=== PATIENT | female | born 1995 | race Caucasian/White ===

== ENCOUNTER 2021-03-12 01:15 | Inpatient (IN) ==
[2021-03-12] MEDS ORDERED: OXYTOCIN 30 UNITS/500 ML BAG IV PRN ×3 (02:12→19:46)
[2021-03-12 02:33] LABS: Hemoglobin 12.6 g/dL (12.0-16.0); Mean Corpuscular Hemoglobin 27.6 pg (25-34); Mean Corpuscular Hgb Conc 33.2 g/dL (32-36); Mean Corpuscular Volume 83.3 fL (80-100); Mean Platelet Volume 11.3 fL (7.4-10.4); Platelet Count 230 K/uL (130-400); RDW Coefficient of Variation 13.5 % (11.5-14.5); RDW Standard Deviation 40.4 fL (36.4-46.3); Red Blood Count 4.56 M/uL (4.2-5.4); White Blood Count 10.49 K/uL (4.8-10.8)
[2021-03-12] MEDS ORDERED: BUTORPHANOL TARTRATE 1 MG/ML VIAL IV PRN (04:19)
[2021-03-12] MEDS ORDERED: BUTORPHANOL TARTRATE 1 MG/ML VIAL ONE (04:25)
[2021-03-12] MEDS ORDERED: SODIUM CHLORIDE 0.9% INJ 10 ML VIAL ONE (07:14)
[2021-03-12] MEDS ORDERED: fentaNYL citrate 100 MCG/2 ML VIAL ONE ×2 (07:14→15:10)
[2021-03-12] MEDS ORDERED: BUPIVACAINE 0.25% 30 ML VIAL ONE ×2 (07:14→15:10)
[2021-03-12] MEDS ORDERED: ePHEDrine sulfate 50 MG/ML AMP ONE (07:14)
[2021-03-12] MEDS ORDERED: fentaNYL 2MCG/ML ROPIVACAINE 1.25MG/ML 100 ML BAG EPI ONE (07:15)
[2021-03-12] MEDS: LACTATED RINGER'S 1,000 ML IV PRN ×4 (07:18→18:43)
--- NOTE | 2021-03-12 07:33 | Anesthesiology Consultation ---
Date of Service March 12, 2021 Assessment & Plan (1) Encounter for pre-operative examination: Chart Review Chart Review: Acceptable Risk for Surgery and Patient NOT seen in Pre Admission Testing Consults Requested none History Height/Weight Height: 5 ft 4 in Weight: 95.708 kg Allergies Allergy/AdvReac Type Severity Reaction Status Date / Time sulfamethoxazole Allergy Severe Rash Verified 03/12/21 01:23 [From Bactrim] trimethoprim [From Bactrim] Allergy Severe Rash Verified 03/12/21 01:23 Medications Home Medications Medication Instructions Recorded Confirmed Last Taken prenat.vits,clare,wtl-[id number] 1 tab PO DAILY 03/12/21 03/12/21 03/11/21 08:00 Active Medications Generic Name Dose Route Start Last Admin Trade Name Freq PRN Reason Stop Dose Admin Lactated Ringer's 1,000 mls @ 125 mls/hr 03/12/21 02:12 03/12/21 07:18 Lr IV 03/14/21 02:11 999 mls/hr .Q8H PRN Administration L&D Protocol Protocol Past Medical History Medical History Patient denies medical problems Past Surgical History Surgical History History of removal of cyst one on neck and one on left arm Lee teeth removed Social History Smoking Status: Never smoker Hx Alcohol Use: No Hx Substance Use: No substance use type: does not use Physical Exam Vital Signs Last Vital Signs Temp 36.6 C 03/12/21 07:05 Pulse 91 H 03/12/21 07:05 Resp 20 03/12/21 07:05 BP 120/80 03/12/21 07:05 Testing Laboratory Results 03/12/21 02:20 Blood Type O Positive 03/12/21 02:20 Antibody Screen NEGATIVE 03/12/21 02:20
[2021-03-12] MEDS ORDERED: NALOXONE HCL 0.4 MG/1 ML VIAL/CARP IV PRN (08:12)
[2021-03-12] MEDS ORDERED: NALBUPHINE HCL INJ 10 MG/ML AMP IV PRN (08:12)
[2021-03-12] MEDS ORDERED: ePHEDrine sulfate 50 MG/ML AMP IV PRN (08:12)
[2021-03-12] MEDS ORDERED: NALOXONE HCL 1 MG in SODIUM CHLORIDE 0.9% 1000ML 1,000 ML IV PRN (08:12)
[2021-03-12] MEDS ORDERED: ONDANSETRON INJ 2 MG/ML 2 ML VIAL IV PRN (08:12)
[2021-03-12] MEDS ORDERED: diphenhydrAMINE 50 MG/ML VIAL IV PRN (08:12)
[2021-03-12] MEDS ORDERED: fentaNYL 2MCG/ML ROPIVACAINE 1.25MG/ML 100 ML BAG EPI PRN (08:12)
--- NOTE | 2021-03-12 08:26 | Labor Progress Brief Note ---
Date of Service March 12, 2021 Assessment & Plan (1) PROM (premature rupture of membranes): Plan: Pt doing well FHR; CAT1 Ctx 4-5mins Epidural analgesia on board VE; unchanged 2cm Pitocin augmentation discussed with pt 'pt agrees Admission and Anticipated Discharge Date Admission Date: March 12, 2021 Results & Data ([facility]) Vital Signs (Past 12 Hours) Vital Signs Temp Pulse Resp BP Pulse Ox 03/12/21 08:23 86 113/62 03/12/21 08:22 104 H 97 03/12/21 08:21 107 H 113/63 03/12/21 08:19 109 H 107/60 03/12/21 08:17 116 H 113/56 L 98 03/12/21 08:16 121 H 102/54 L 03/12/21 08:13 108 H 117/63 03/12/21 08:12 113 H 98 03/12/21 08:11 113 H 115/63 03/12/21 08:09 106 H 117/56 L 03/12/21 08:07 106 H 116/58 L 97 03/12/21 08:05 105 H 123/66 03/12/21 08:04 110 H 115/61 03/12/21 08:02 109 H 98 03/12/21 07:57 106 H 97 03/12/21 07:52 85 98 03/12/21 07:47 103 H 99 03/12/21 07:42 104 H 99 03/12/21 07:37 108 H 98 03/12/21 07:05 36.6 C 91 H 20 120/80 03/12/21 04:45 36.6 C 100 H 18 122/75 03/12/21 03:30 36.8 C 03/12/21 01:31 104 H 121/76 03/12/21 01:26 36.8 C 18
--- NOTE | 2021-03-12 09:13 | Obstetrical Progress Note ---
Date of Service March 12, 2021 Assessment & Plan Admission and Anticipated Discharge Date Admission Date: March 12, 2021 Subjective Attempt to see the patient but she was sleeping after epidural. I got sign out from Also about her, at 38+ weeks with spontaneous rupture of membranes around midnight. GBS negative. I reviewed her records from office. heart rate category 1, toco contractions every 4 to 5 minutes, Pitocin was started. Continue to monitor Results & Data ([facility]) Vital Signs (Past 12 Hours) Vital Signs Temp Pulse Resp BP Pulse Ox 03/12/21 09:07 105 H 96 03/12/21 09:04 110 H 116/67 03/12/21 09:02 105 H 96 03/12/21 08:57 106 H 96 03/12/21 08:52 109 H 96 03/12/21 08:49 110 H 122/68 03/12/21 08:47 81 96 03/12/21 08:42 99 H 96 03/12/21 08:37 112 H 96 03/12/21 08:33 116 H 116/67 03/12/21 08:32 116 H 98 03/12/21 08:31 111 H 119/67 03/12/21 08:30 116 H 117/66 03/12/21 08:28 105 H 106/61 03/12/21 08:27 112 H 98 03/12/21 08:26 110/58 L 03/12/21 08:23 86 113/62 03/12/21 08:22 104 H 97 03/12/21 08:21 107 H 113/63 03/12/21 08:19 109 H 107/60 03/12/21 08:17 116 H 113/56 L 98 03/12/21 08:16 121 H 102/54 L 03/12/21 08:13 108 H 117/63 03/12/21 08:12 113 H 98 03/12/21 08:11 113 H 115/63 03/12/21 08:09 106 H 117/56 L 03/12/21 08:07 106 H 116/58 L 97 03/12/21 08:05 105 H 123/66 03/12/21 08:04 110 H 115/61 03/12/21 08:02 109 H 98 03/12/21 07:57 106 H 97 03/12/21 07:52 85 98 10/16/21 07:47 103 H 99 03/12/21 07:42 104 H 99 03/12/21 07:37 108 H 98 03/12/21 07:05 36.6 C 91 H 20 120/80 03/12/21 04:45 36.6 C 100 H 18 122/75 03/12/21 03:30 36.8 C 03/12/21 01:31 104 H 121/76 03/12/21 01:26 36.8 C 18
--- NOTE | 2021-03-12 12:03 | Obstetrical Progress Note ---
Date of Service March 12, 2021 Assessment & Plan Admission and Anticipated Discharge Date Admission Date: March 12, 2021 Subjective She is awake now, I reviewed her medical history with her, she denies any m edical problems, surgeries, smoking, alcohol or drug use she denies any history of STDs including herpes chlamydia gonorrhea. Her cervix was checked by her nurse and it was 8 cm dilated and head was at 0 station. heart rate category 1, toco with contractions every 2 to 3 minutes. Continue to monitor closely. All questions were answered. Results & Data ([facility]) Vital Signs (Past 12 Hours) Vital Signs Temp Pulse Resp BP Pulse Ox 03/12/21 11:57 102 H 99 03/12/21 11:52 120 H 99 03/12/21 11:49 116 H 132/81 03/12/21 11:47 112 H 100 03/12/21 11:42 113 H 99 03/12/21 11:37 118 H 98 03/12/21 11:34 112 H 133/77 03/12/21 11:32 113 H 99 03/12/21 11:27 112 H 99 03/12/21 11:22 110 H 98 03/12/21 11:20 109 H 131/80 03/12/21 11:17 107 H 100 03/12/21 11:12 103 H 99 03/12/21 11:07 111 H 99 03/12/21 11:05 36.9 C 111 H 20 128/77 03/12/21 11:02 110 H 99 03/12/21 10:57 113 H 99 03/12/21 10:52 99 H 98 03/12/21 10:49 105 H 122/75 03/12/21 10:47 101 H 98 03/12/21 10:42 102 H 97 03/12/21 10:37 106 H 97 03/12/21 10:34 102 H 120/76 03/12/21 10:32 99 H 99 03/12/21 10:27 111 H 99 03/12/21 10:22 108 H 99 03/12/21 10:20 104 H 121/75 03/12/21 10:17 115 H 97 03/12/21 10:12 101 H 99 03/12/21 10:07 110 H 98 03/12/21 10:04 110 H 18 123/67 03/12/21 10:02 113 H 97 03/12/21 09:57 118 H 98 03/12/21 09:52 119 H 92 03/12/21 09:49 108 H 110/77 03/12/21 09:47 102 H 98 03/12/21 09:42 113 H 98 03/12/21 09:37 104 H 99 03/12/21 09:35 117 H 106/68 03/12/21 09:32 107 H 98 03/12/21 09:27 105 H 96 03/12/21 09:22 98 H 95 03/12/21 09:19 111 H 115/67 03/12/21 09:17 100 H 95 03/12/21 09:12 106 H 96 03/12/21 09:07 105 H 96 03/12/21 09:04 110 H 116/67 03/12/21 09:02 105 H 96 03/12/21 09:01 36.9 C 18 03/12/21 08:57 106 H 96 03/12/21 08:52 109 H 96 03/12/21 08:49 110 H 122/68 03/12/21 08:47 81 96 03/12/21 08:42 99 H 96 03/12/21 08:37 112 H 96 03/12/21 08:33 116 H 116/67 03/12/21 08:32 116 H 98 03/12/21 08:31 111 H 119/67 03/12/21 08:30 116 H 117/66 03/12/21 08:28 105 H 106/61 03/12/21 08:27 112 H 98 03/12/21 08:26 110/58 L 03/12/21 08:23 86 113/62 03/12/21 08:22 104 H 97 03/12/21 08:21 107 H 113/63 03/12/21 08:19 109 H 107/60 03/12/21 08:17 116 H 113/56 L 98 03/12/21 08:16 121 H 102/54 L 03/12/21 08:13 108 H 117/63 03/12/21 08:12 113 H 98 03/12/21 08:11 113 H 115/63 03/12/21 08:09 106 H 117/56 L 03/12/21 08:07 106 H 116/58 L 97 03/12/21 08:05 105 H 123/66 03/12/21 08:04 110 H 115/61 03/12/21 08:02 109 H 98 03/12/21 07:57 106 H 97 03/12/21 07:52 85 98 03/12/21 07:47 103 H 99 03/12/21 07:42 104 H 99 03/12/21 07:37 108 H 98 03/12/21 07:05 36.6 C 91 H 20 120/80 03/12/21 04:45 36.6 C 100 H 18 122/75 03/12/21 03:30 36.8 C 03/12/21 01:31 104 H 121/76 03/12/21 01:26 36.8 C 18
--- NOTE | 2021-03-12 13:35 | Obstetrical Progress Note ---
Date of Service March 12, 2021 Assessment & Plan Admission and Anticipated Discharge Date Admission Date: March 12, 2021 Subjective Patient is reevaluated. She felt pain and pressure and was found to be fully dilated and desire to push. She used pain button and denies any pain now. Vaginal exam is 10 cm and head at +1 station with cone shape. heart rate category 1, Continue to monitor and pushing. Results & Data ([facility]) Vital Signs (Past 12 Hours) Vital Signs Temp Pulse Resp BP Pulse Ox 03/12/21 13:32 130 H 91 03/12/21 13:28 123 H 82 L 03/12/21 13:27 132 H 99 03/12/21 13:22 133 H 100 03/12/21 13:19 134 H 137/68 03/12/21 13:17 127 H 98 03/12/21 13:12 127 H 99 03/12/21 13:07 113 H 99 03/12/21 13:05 115 H 131/78 03/12/21 13:02 115 H 98 03/12/21 12:57 112 H 99 03/12/21 12:52 111 H 98 03/12/21 12:49 112 H 131/76 03/12/21 12:47 121 H 99 03/12/21 12:42 113 H 99 03/12/21 12:37 120 H 99 03/12/21 12:35 122 H 92 03/12/21 12:32 128 H 100 03/12/21 12:27 123 H 98 03/12/21 12:22 115 H 98 03/12/21 12:21 112 H 130/76 03/12/21 12:17 114 H 98 03/12/21 12:12 120 H 97 03/12/21 12:07 115 H 100 03/12/21 12:06 108 H 20 119/91 03/12/21 12:02 109 H 98 03/12/21 11:57 102 H 99 03/12/21 11:52 120 H 99 03/12/21 11:49 116 H 132/81 03/12/21 11:47 112 H 100 03/12/21 11:42 113 H 99 03/12/21 11:37 118 H 98 03/12/21 11:34 112 H 133/77 03/12/21 11:32 113 H 99 03/12/21 11:27 112 H 99 03/12/21 11:22 110 H 98 03/12/21 11:20 109 H 131/80 03/12/21 11:17 107 H 100 03/12/21 11:12 103 H 99 03/12/21 11:07 111 H 99 03/12/21 11:05 36.9 C 111 H 20 128/77 03/12/21 11:02 110 H 99 03/12/21 10:57 113 H 99 03/12/21 10:52 99 H 98 03/12/21 10:49 105 H 122/75 03/12/21 10:47 101 H 98 03/12/21 10:42 102 H 97 03/12/21 10:37 106 H 97 03/12/21 10:34 102 H 120/76 03/12/21 10:32 99 H 99 03/12/21 10:27 111 H 99 03/12/21 10:22 108 H 99 03/12/21 10:20 104 H 121/75 03/12/21 10:17 115 H 97 03/12/21 10:12 101 H 99 03/12/21 10:07 110 H 98 03/12/21 10:04 110 H 18 123/67 03/12/21 10:02 113 H 97 03/12/21 09:57 118 H 98 03/12/21 09:52 119 H 92 03/12/21 09:49 108 H 110/77 03/12/21 09:47 102 H 98 03/12/21 09:42 113 H 98 03/12/21 09:37 104 H 99 03/12/21 09:35 117 H 106/68 03/12/21 09:32 107 H 98 03/12/21 09:27 105 H 96 03/12/21 09:22 98 H 95 03/12/21 09:19 111 H 115/67 03/12/21 09:17 100 H 95 03/12/21 09:12 106 H 96 03/12/21 09:07 105 H 96 03/12/21 09:04 110 H 116/67 03/12/21 09:02 105 H 96 03/12/21 09:01 36.9 C 18 03/12/21 08:57 106 H 96 03/12/21 08:52 109 H 96 03/12/21 08:49 110 H 122/68 03/12/21 08:47 81 96 03/12/21 08:42 99 H 96 03/12/21 08:37 112 H 96 03/12/21 08:33 116 H 116/67 03/12/21 08:32 116 H 98 03/12/21 08:31 111 H 119/67 03/12/21 08:30 116 H 117/66 03/12/21 08:28 105 H 106/61 03/12/21 08:27 112 H 98 03/12/21 08:26 110/58 L 03/12/21 08:23 86 113/62 03/12/21 08:22 104 H 97 03/12/21 08:21 107 H 113/63 03/12/21 08:19 109 H 107/60 03/12/21 08:17 116 H 113/56 L 98 03/12/21 08:16 121 H 102/54 L 03/12/21 08:13 108 H 117/63 03/12/21 08:12 113 H 98 03/12/21 08:11 113 H 115/63 03/12/21 08:09 106 H 117/56 L 03/12/21 08:07 106 H 116/58 L 97 03/12/21 08:05 105 H 123/66 03/12/21 08:04 110 H 115/61 03/12/21 08:02 109 H 98 03/12/21 07:57 106 H 97 03/12/21 07:52 85 98 03/12/21 07:47 103 H 99 03/12/21 07:42 104 H 99 03/12/21 07:37 108 H 98 03/12/21 07:05 36.6 C 91 H 20 120/80 03/12/21 04:45 36.6 C 100 H 18 122/75 03/12/21 03:30 36.8 C
[2021-03-12] MEDS: ceFAZolin 2000MG 2,000 MG/15 ML SYR IV SCH ×2 (14:47→22:22)
--- NOTE | 2021-03-12 15:14 | Obstetrical Progress Note ---
Date of Service March 12, 2021 Assessment & Plan Admission and Anticipated Discharge Date Admission Date: March 12, 2021 Subjective Patient has been pushing for almost 2 hours. Started to have constant back/ rectal pain for the last half an hour or so. She is uncomfortable and crying. Vaginal exam, head at +2 station, coned, direct occiput posterior, confirmed with bedside ultrasound. Abdominal circumference is 36+ weeks, femur length 38 weeks. Unable to estimate weight by ultrasound but does not seem to be a large baby by the measurements above. Discussed option of pain relief with epidural bolus and then brief rest and then start pushing again versus primary . Discussed the risk of as a major surgery. She understands all and she wants to try epidural bolus and get some pain relief and then try to push again. heart rate category 1. It was tachycardic briefly and maternal temperature was 100 F, started on cefazolin 2 g IV for prolonged rupture of membranes and above findings. Continue to monitor closely. Results & Data ([facility]) Vital Signs (Past 12 Hours) Vital Signs Temp Pulse Resp BP Pulse Ox 03/12/21 15:07 128 H 97 03/12/21 15:04 139 H 127/94 03/12/21 15:02 130 H 97 03/12/21 14:57 140 H 97 03/12/21 14:52 154 H 99 03/12/21 14:50 142 H 92 03/12/21 14:47 146 H 97 03/12/21 14:42 126 H 97 03/12/21 14:37 37.2 C 137 H 24 95 03/12/21 14:36 122 H 110/58 L 03/12/21 14:32 134 H 98 03/12/21 14:27 135 H 99 03/12/21 14:22 122 H 98 03/12/21 14:21 128 H 88 L 03/12/21 14:17 129 H 98 03/12/21 14:15 138 H 86 L 03/12/21 14:12 126 H 99 03/12/21 14:08 126 H 93 03/12/21 14:07 128 H 97 03/12/21 14:04 130 H 114/71 03/12/21 14:03 37.8 C H 20 03/12/21 14:02 130 H 98 03/12/21 14:01 125 H 89 L 03/12/21 13:57 118 H 98 03/12/21 13:56 134 H 92 03/12/21 13:52 134 H 100 03/12/21 13:49 133 H 112/67 03/12/21 13:47 127 H 97 03/12/21 13:44 129 H 82 L 03/12/21 13:42 126 H 97 03/12/21 13:37 133 H 88 L 03/12/21 13:36 134 H 113/62 03/12/21 13:32 130 H 91 03/12/21 13:28 123 H 82 L 03/12/21 13:27 132 H 99 03/12/21 13:22 133 H 100 03/12/21 13:19 134 H 137/68 03/12/21 13:17 127 H 98 03/12/21 13:12 127 H 99 03/12/21 13:07 113 H 99 03/12/21 13:05 115 H 131/78 03/12/21 13:02 115 H 98 03/12/21 12:57 112 H 99 03/12/21 12:52 111 H 98 03/12/21 12:49 112 H 131/76 03/12/21 12:47 121 H 99 03/12/21 12:42 113 H 99 03/12/21 12:37 120 H 99 03/12/21 12:35 122 H 92 03/12/21 12:32 128 H 100 03/12/21 12:27 123 H 98 03/12/21 12:22 115 H 98 03/12/21 12:21 112 H 130/76 03/12/21 12:17 114 H 98 03/12/21 12:12 120 H 97 03/12/21 12:07 115 H 100 03/12/21 12:06 108 H 20 119/91 03/12/21 12:02 109 H 98 03/12/21 11:57 102 H 99 03/12/21 11:52 120 H 99 03/12/21 11:49 116 H 132/81 03/12/21 11:47 112 H 100 03/12/21 11:42 113 H 99 03/12/21 11:37 118 H 98 03/12/21 11:34 112 H 133/77 03/12/21 11:32 113 H 99 03/12/21 11:27 112 H 99 03/12/21 11:22 110 H 98 03/12/21 11:20 109 H 131/80 03/12/21 11:17 107 H 100 03/12/21 11:12 103 H 99 03/12/21 11:07 111 H 99 03/12/21 11:05 36.9 C 111 H 20 128/77 03/12/21 11:02 110 H 99 03/12/21 10:57 113 H 99 03/12/21 10:52 99 H 98 03/12/21 10:49 105 H 122/75 03/12/21 10:47 101 H 98 03/12/21 10:42 102 H 97 03/12/21 10:37 106 H 97 03/12/21 10:34 102 H 120/76 03/12/21 10:32 99 H 99 03/12/21 10:27 111 H 99 03/12/21 10:22 108 H 99 03/12/21 10:20 104 H 121/75 03/12/21 10:17 115 H 97 03/12/21 10:12 101 H 99 03/12/21 10:07 110 H 98 03/12/21 10:04 110 H 18 123/67 03/12/21 10:02 113 H 97 03/12/21 09:57 118 H 98 03/12/21 09:52 119 H 92 03/12/21 09:49 108 H 110/77 03/12/21 09:47 102 H 98 03/12/21 09:42 113 H 98 03/12/21 09:37 104 H 99 03/12/21 09:35 117 H 106/68 03/12/21 09:32 107 H 98 03/12/21 09:27 105 H 96 03/12/21 09:22 98 H 95 03/12/21 09:19 111 H 115/67 03/12/21 09:17 100 H 95 03/12/21 09:12 106 H 96 03/12/21 09:07 105 H 96 03/12/21 09:04 110 H 116/67 03/12/21 09:02 105 H 96 03/12/21 09:01 36.9 C 18 03/12/21 08:57 106 H 96 03/12/21 08:52 109 H 96 10/16/21 08:49 110 H 122/68 03/12/21 08:47 81 96 03/12/21 08:42 99 H 96 03/12/21 08:37 112 H 96 03/12/21 08:33 116 H 116/67 03/12/21 08:32 116 H 98 03/12/21 08:31 111 H 119/67 03/12/21 08:30 116 H 117/66 03/12/21 08:28 105 H 106/61 03/12/21 08:27 112 H 98 03/12/21 08:26 110/58 L 03/12/21 08:23 86 113/62 03/12/21 08:22 104 H 97 03/12/21 08:21 107 H 113/63 03/12/21 08:19 109 H 107/60 03/12/21 08:17 116 H 113/56 L 98 03/12/21 08:16 121 H 102/54 L 03/12/21 08:13 108 H 117/63 03/12/21 08:12 113 H 98 03/12/21 08:11 113 H 115/63 03/12/21 08:09 106 H 117/56 L 03/12/21 08:07 106 H 116/58 L 97 03/12/21 08:05 105 H 123/66 03/12/21 08:04 110 H 115/61 03/12/21 08:02 109 H 98 03/12/21 07:57 106 H 97 03/12/21 07:52 85 98 03/12/21 07:47 103 H 99 03/12/21 07:42 104 H 99 03/12/21 07:37 108 H 98 03/12/21 07:05 36.6 C 91 H 20 120/80 03/12/21 04:45 36.6 C 100 H 18 122/75 03/12/21 03:30 36.8 C
[2021-03-12] MEDS ORDERED: Nursing to Pharmacy Communication SCH (15:30)
--- NOTE | 2021-03-12 16:01 | Obstetrical Progress Note ---
Date of Service March 12, 2021 Assessment & Plan Admission and Anticipated Discharge Date Admission Date: March 12, 2021 Subjective Patient is reevaluated. She received bolus through epidural and now comfortable, sleeping FHR 150-160's with good variability but some variable decels during or after ctxs with spontaneous recovery VE: unchanged except anterior fontanelle at 10 o'clock ( LOP) Will change positions and continue to monitor closely Results & Data ([facility]) Vital Signs (Past 12 Hours) Vital Signs Temp Pulse Resp BP Pulse Ox 03/12/21 15:56 114 H 138/59 L 03/12/21 15:52 117 H 98 03/12/21 15:50 115 H 99/54 L 03/12/21 15:47 115 H 97 03/12/21 15:45 96 H 112/56 L 03/12/21 15:42 98 H 96 03/12/21 15:39 113 H 109/57 L 03/12/21 15:37 109 H 110/55 L 98 03/12/21 15:35 105 H 108/57 L 03/12/21 15:33 117 H 100/53 L 03/12/21 15:32 111 H 97 03/12/21 15:31 111 H 104/58 L 03/12/21 15:29 113 H 134/67 03/12/21 15:27 119 H 128/64 97 03/12/21 15:25 118 H 134/73 03/12/21 15:23 117 H 137/70 03/12/21 15:22 121 H 96 03/12/21 15:21 113 H 135/69 92 03/12/21 15:20 120 H 145/79 H 03/12/21 15:17 124 H 141/78 H 97 03/12/21 15:12 123 H 99 03/12/21 15:07 128 H 97 03/12/21 15:04 139 H 127/94 03/12/21 15:02 130 H 97 03/12/21 14:57 140 H 97 03/12/21 14:52 154 H 99 03/12/21 14:50 142 H 92 03/12/21 14:47 146 H 97 03/12/21 14:42 126 H 97 03/12/21 14:37 37.2 C 137 H 24 95 03/12/21 14:36 122 H 110/58 L 03/12/21 14:32 134 H 98 03/12/21 14:27 135 H 99 03/12/21 14:22 122 H 98 03/12/21 14:21 128 H 88 L 03/12/21 14:17 129 H 98 03/12/21 14:15 138 H 86 L 03/12/21 14:12 126 H 99 03/12/21 14:08 126 H 93 03/12/21 14:07 128 H 97 03/12/21 14:04 130 H 114/71 03/12/21 14:03 37.8 C H 20 03/12/21 14:02 130 H 98 03/12/21 14:01 125 H 89 L 03/12/21 13:57 118 H 98 03/12/21 13:56 134 H 92 03/12/21 13:52 134 H 100 03/12/21 13:49 133 H 112/67 03/12/21 13:47 127 H 97 03/12/21 13:44 129 H 82 L 03/12/21 13:42 126 H 97 03/12/21 13:37 133 H 88 L 03/12/21 13:36 134 H 113/62 03/12/21 13:32 130 H 91 03/12/21 13:28 123 H 82 L 03/12/21 13:27 132 H 99 03/12/21 13:22 133 H 100 03/12/21 13:19 134 H 137/68 03/12/21 13:17 127 H 98 03/12/21 13:12 127 H 99 03/12/21 13:07 113 H 99 03/12/21 13:05 115 H 131/78 03/12/21 13:02 115 H 98 03/12/21 12:57 112 H 99 03/12/21 12:52 111 H 98 03/12/21 12:49 112 H 131/76 03/12/21 12:47 121 H 99 03/12/21 12:42 113 H 99 03/12/21 12:37 120 H 99 03/12/21 12:35 122 H 92 03/12/21 12:32 128 H 100 03/12/21 12:27 123 H 98 03/12/21 12:22 115 H 98 03/12/21 12:21 112 H 130/76 03/12/21 12:17 114 H 98 03/12/21 12:12 120 H 97 03/12/21 12:07 115 H 100 03/12/21 12:06 108 H 20 119/91 03/12/21 12:02 109 H 98 03/12/21 11:57 102 H 99 03/12/21 11:52 120 H 99 03/12/21 11:49 116 H 132/81 03/12/21 11:47 112 H 100 03/12/21 11:42 113 H 99 03/12/21 11:37 118 H 98 03/12/21 11:34 112 H 133/77 03/12/21 11:32 113 H 99 03/12/21 11:27 112 H 99 03/12/21 11:22 110 H 98 03/12/21 11:20 109 H 131/80 03/12/21 11:17 107 H 100 03/12/21 11:12 103 H 99 03/12/21 11:07 111 H 99 03/12/21 11:05 36.9 C 111 H 20 128/77 03/12/21 11:02 110 H 99 03/12/21 10:57 113 H 99 03/12/21 10:52 99 H 98 03/12/21 10:49 105 H 122/75 03/12/21 10:47 101 H 98 03/12/21 10:42 102 H 97 03/12/21 10:37 106 H 97 03/12/21 10:34 102 H 120/76 03/12/21 10:32 99 H 99 03/12/21 10:27 111 H 99 03/12/21 10:22 108 H 99 03/12/21 10:20 104 H 121/75 03/12/21 10:17 115 H 97 03/12/21 10:12 101 H 99 03/12/21 10:07 110 H 98 03/12/21 10:04 110 H 18 123/67 03/12/21 10:02 113 H 97 03/12/21 09:57 118 H 98 03/12/21 09:52 119 H 92 03/12/21 09:49 108 H 110/77 03/12/21 09:47 102 H 98 03/12/21 09:42 113 H 98 03/12/21 09:37 104 H 99 03/12/21 09:35 117 H 106/68 03/12/21 09:32 107 H 98 03/12/21 09:27 105 H 96 03/12/21 09:22 98 H 95 03/12/21 09:19 111 H 115/67 03/12/21 09:17 100 H 95 03/12/21 09:12 106 H 96 03/12/21 09:07 105 H 96 03/12/21 09:04 110 H 116/67 03/12/21 09:02 105 H 96 03/12/21 09:01 36.9 C 18 03/12/21 08:57 106 H 96 03/12/21 08:52 109 H 96 03/12/21 08:49 110 H 122/68 03/12/21 08:47 81 96 03/12/21 08:42 99 H 96 03/12/21 08:37 112 H 96 03/12/21 08:33 116 H 116/67 03/12/21 08:32 116 H 98 03/12/21 08:31 111 H 119/67 03/12/21 08:30 116 H 117/66 03/12/21 08:28 105 H 106/61 03/12/21 08:27 112 H 98 03/12/21 08:26 110/58 L 03/12/21 08:23 86 113/62 03/12/21 08:22 104 H 97 03/12/21 08:21 107 H 113/63 03/12/21 08:19 109 H 107/60 03/12/21 08:17 116 H 113/56 L 98 03/12/21 08:16 121 H 102/54 L 03/12/21 08:13 108 H 117/63 03/12/21 08:12 113 H 98 03/12/21 08:11 113 H 115/63 03/12/21 08:09 106 H 117/56 L 03/12/21 08:07 106 H 116/58 L 97 03/12/21 08:05 105 H 123/66 03/12/21 08:04 110 H 115/61 03/12/21 08:02 109 H 98 03/12/21 07:57 106 H 97 03/12/21 07:52 85 98 03/12/21 07:47 103 H 99 03/12/21 07:42 104 H 99 03/12/21 07:37 108 H 98 03/12/21 07:05 36.6 C 91 H 20 120/80 03/12/21 04:45 36.6 C 100 H 18 122/75
--- NOTE | 2021-03-12 17:35 | Obstetrical Progress Note ---
Date of Service March 12, 2021 Assessment & Plan Admission and Anticipated Discharge Date Admission Date: March 12, 2021 Subjective Patient had rested for over an hour and now awake and ready to push No pain nor pressure FHR had been categ I, no decels since last note VE; large caput, anterior fontanelle at 7 o'clock? partially visible upon opening labia while pushing Continue to monitor closely and pushing. Results & Data ([facility]) Vital Signs (Past 12 Hours) Vital Signs Temp Pulse Resp BP Pulse Ox 03/12/21 17:28 112 H 80 L 03/12/21 17:27 116 H 100 03/12/21 17:22 37.5 C 133 H 20 97 03/12/21 17:17 133 H 98 03/12/21 17:16 113 H 85 L 03/12/21 17:15 127 H 105/66 03/12/21 17:12 106 H 99 03/12/21 17:11 127 H 133/93 03/12/21 17:10 101 H 91 03/12/21 17:07 97 H 97 03/12/21 17:06 101 H 123/77 03/12/21 17:02 93 H 97 03/12/21 17:00 108 H 127/67 03/12/21 16:57 95 H 96 03/12/21 16:55 102 H 116/63 03/12/21 16:52 108 H 97 03/12/21 16:51 103 H 121/70 03/12/21 16:47 99 H 97 03/12/21 16:45 108 H 130/70 03/12/21 16:42 108 H 97 03/12/21 16:40 107 H 122/66 03/12/21 16:37 102 H 97 03/12/21 16:35 110 H 118/67 03/12/21 16:33 37.1 C 18 03/12/21 16:32 114 H 96 03/12/21 16:31 106 H 121/66 03/12/21 16:27 94 H 97 03/12/21 16:25 111 H 117/63 03/12/21 16:22 97 H 97 03/12/21 16:21 110 H 120/70 03/12/21 16:17 101 H 97 03/12/21 16:15 113 H 120/61 03/12/21 16:12 95 H 97 03/12/21 16:10 111 H 116/62 03/12/21 16:07 100 H 97 03/12/21 16:05 105 H 120/61 03/12/21 16:02 110 H 97 03/12/21 16:00 117 H 120/60 03/12/21 15:57 129 H 97 03/12/21 15:56 114 H 138/59 L 03/12/21 15:52 117 H 98 03/12/21 15:50 115 H 99/54 L 03/12/21 15:47 115 H 97 03/12/21 15:45 96 H 112/56 L 03/12/21 15:42 98 H 96 03/12/21 15:39 113 H 109/57 L 03/12/21 15:37 109 H 110/55 L 98 03/12/21 15:35 105 H 108/57 L 03/12/21 15:33 117 H 100/53 L 03/12/21 15:32 111 H 97 03/12/21 15:31 111 H 104/58 L 03/12/21 15:29 113 H 134/67 03/12/21 15:27 119 H 128/64 97 03/12/21 15:25 118 H 134/73 03/12/21 15:23 117 H 137/70 03/12/21 15:22 121 H 96 03/12/21 15:21 113 H 135/69 92 03/12/21 15:20 120 H 145/79 H 03/12/21 15:17 124 H 141/78 H 97 03/12/21 15:12 123 H 99 03/12/21 15:07 128 H 97 03/12/21 15:04 139 H 127/94 03/12/21 15:02 130 H 97 03/12/21 14:57 140 H 97 03/12/21 14:52 154 H 99 03/12/21 14:50 142 H 92 03/12/21 14:47 146 H 97 03/12/21 14:42 126 H 97 03/12/21 14:37 37.2 C 137 H 24 95 03/12/21 14:36 122 H 110/58 L 03/12/21 14:32 134 H 98 03/12/21 14:27 135 H 99 03/12/21 14:22 122 H 98 03/12/21 14:21 128 H 88 L 03/12/21 14:17 129 H 98 03/12/21 14:15 138 H 86 L 03/12/21 14:12 126 H 99 03/12/21 14:08 126 H 93 03/12/21 14:07 128 H 97 03/12/21 14:04 130 H 114/71 03/12/21 14:03 37.8 C H 20 03/12/21 14:02 130 H 98 03/12/21 14:01 125 H 89 L 03/12/21 13:57 118 H 98 03/12/21 13:56 134 H 92 03/12/21 13:52 134 H 100 03/12/21 13:49 133 H 112/67 03/12/21 13:47 127 H 97 03/12/21 13:44 129 H 82 L 03/12/21 13:42 126 H 97 03/12/21 13:37 133 H 88 L 03/12/21 13:36 134 H 113/62 03/12/21 13:32 130 H 91 03/12/21 13:28 123 H 82 L 03/12/21 13:27 132 H 99 03/12/21 13:22 133 H 100 03/12/21 13:19 134 H 137/68 03/12/21 13:17 127 H 98 03/12/21 13:12 127 H 99 03/12/21 13:07 113 H 99 03/12/21 13:05 115 H 131/78 03/12/21 13:02 115 H 98 03/12/21 12:57 112 H 99 03/12/21 12:52 111 H 98 03/12/21 12:49 112 H 131/76 03/12/21 12:47 121 H 99 03/12/21 12:42 113 H 99 03/12/21 12:37 120 H 99 03/12/21 12:35 122 H 92 03/12/21 12:32 128 H 100 03/12/21 12:27 123 H 98 03/12/21 12:22 115 H 98 03/12/21 12:21 112 H 130/76 03/12/21 12:17 114 H 98 03/12/21 12:12 120 H 97 03/12/21 12:07 115 H 100 03/12/21 12:06 108 H 20 119/91 03/12/21 12:02 109 H 98 03/12/21 11:57 102 H 99 03/12/21 11:52 120 H 99 03/12/21 11:49 116 H 132/81 03/12/21 11:47 112 H 100 03/12/21 11:42 113 H 99 03/12/21 11:37 118 H 98 03/12/21 11:34 112 H 133/77 03/12/21 11:32 113 H 99 03/12/21 11:27 112 H 99 03/12/21 11:22 110 H 98 03/12/21 11:20 109 H 131/80 03/12/21 11:17 107 H 100 03/12/21 11:12 103 H 99 03/12/21 11:07 111 H 99 03/12/21 11:05 36.9 C 111 H 20 128/77 03/12/21 11:02 110 H 99 03/12/21 10:57 113 H 99 03/12/21 10:52 99 H 98 03/12/21 10:49 105 H 122/75 03/12/21 10:47 101 H 98 03/12/21 10:42 102 H 97 03/12/21 10:37 106 H 97 03/12/21 10:34 102 H 120/76 03/12/21 10:32 99 H 99 03/12/21 10:27 111 H 99 03/12/21 10:22 108 H 99 03/12/21 10:20 104 H 121/75 03/12/21 10:17 115 H 97 03/12/21 10:12 101 H 99 03/12/21 10:07 110 H 98 03/12/21 10:04 110 H 18 123/67 03/12/21 10:02 113 H 97 03/12/21 09:57 118 H 98 03/12/21 09:52 119 H 92 03/12/21 09:49 108 H 110/77 03/12/21 09:47 102 H 98 03/12/21 09:42 113 H 98 03/12/21 09:37 104 H 99 03/12/21 09:35 117 H 106/68 03/12/21 09:32 107 H 98 03/12/21 09:27 105 H 96 10/16/21 09:22 98 H 95 03/12/21 09:19 111 H 115/67 03/12/21 09:17 100 H 95 03/12/21 09:12 106 H 96 03/12/21 09:07 105 H 96 03/12/21 09:04 110 H 116/67 03/12/21 09:02 105 H 96 03/12/21 09:01 36.9 C 18 03/12/21 08:57 106 H 96 03/12/21 08:52 109 H 96 03/12/21 08:49 110 H 122/68 03/12/21 08:47 81 96 03/12/21 08:42 99 H 96 03/12/21 08:37 112 H 96 03/12/21 08:33 116 H 116/67 03/12/21 08:32 116 H 98 03/12/21 08:31 111 H 119/67 03/12/21 08:30 116 H 117/66 03/12/21 08:28 105 H 106/61 03/12/21 08:27 112 H 98 03/12/21 08:26 110/58 L 03/12/21 08:23 86 113/62 03/12/21 08:22 104 H 97 03/12/21 08:21 107 H 113/63 03/12/21 08:19 109 H 107/60 03/12/21 08:17 116 H 113/56 L 98 03/12/21 08:16 121 H 102/54 L 03/12/21 08:13 108 H 117/63 03/12/21 08:12 113 H 98 03/12/21 08:11 113 H 115/63 03/12/21 08:09 106 H 117/56 L 03/12/21 08:07 106 H 116/58 L 97 03/12/21 08:05 105 H 123/66 03/12/21 08:04 110 H 115/61 03/12/21 08:02 109 H 98 03/12/21 07:57 106 H 97 03/12/21 07:52 85 98 03/12/21 07:47 103 H 99 03/12/21 07:42 104 H 99 03/12/21 07:37 108 H 98 03/12/21 07:05 36.6 C 91 H 20 120/80
[2021-03-12] MEDS ORDERED: MINERAL OIL 30 ML UDC ONE ×2 (18:00→18:29)
[2021-03-12] MEDS ORDERED: LIDOCAINE 1% LOCAL 20 ML VIAL ONE (19:24)
[2021-03-12] MEDS ORDERED: DIPHTHERIA/TETANUS/PERTUSSIS 0.5 ML SYR/VIAL IM ONE (19:46)
[2021-03-12] MEDS ORDERED: ACETAMINOPHEN 325 MG TAB PO PRN (19:46)
[2021-03-12] MEDS ORDERED: SUPERCREAM 0.870% 15 GM JAR EXT PRN (19:46)
[2021-03-12] MEDS ORDERED: BENZOCAINE 20% AER SPR 82.5 GM CAN EXT PRN (19:46)
[2021-03-12] MEDS ORDERED: MEASLES, MUMPS & RUBELLA VIRUS VIAL SQ ONE (19:46)
[2021-03-12] MEDS ORDERED: oxyCODONE/ACETAMINOPHEN 5mg/325mg TAB PO PRN (19:46)
[2021-03-12] MEDS ORDERED: HYDROCORTISONE ACETATE 25 MG SUPP PR PRN (19:46)
[2021-03-12] MEDS ORDERED: bisacodyL 10 MG SUPP PR PRN (19:46)
--- NOTE | 2021-03-12 19:52 | Delivery Summary ---
Vaginal Delivery Summary Date of Service March 12, 2021 Vaginal Delivery Summary Patient was found to be fully dilated and desire to push. she pushed of and on for about 4 hours and delivered the head 3 and intact perineum. Anterior/left shoulder was found to be stuck behind the pubic bone. The nursing team was notified to have shoulder dystocia. The bed was lowered down, and with the hyper extension of legs and suprapubic pressure, unable to deliver the anterior shoulder. I was able to deliver posterior/right arm shoulder without difficulty. And then all baby was delivered and placed on mother's chest. Mouth and nose were suctioned, cord was clamped x2 and cut. The baby was handed to the waiting pediatric team with Dr. Lea. The vagina and perineum were checked for lacerations. There was a very small first-degree laceration on the anterior vagina wall under the urethra. It was repaired with 3-0 Vicryl on SH needle with [id number] stitch x1 and it was hemostatic. The rest of the vagina and perineum were intact. The placenta was found to be in the vagina, delivered spontaneously as intact and complete. Uterus was explored found to be empty lower segment was cleared of all clots and debris. IV oxytocin was started. EBL was 200 mL. The mom and baby tolerated procedure well, there was a viable male , Apgars 7/9, weight is pending. No complications happened other than moderate shoulder dystocia.
[2021-03-12] MEDS: IBUPROFEN 600 MG TAB PO PRN (20:01)
--- NOTE | 2021-03-12 20:30 | Anesthesiology Progress Note ---
Date of Service March 12, 2021 Anesthesia Post Procedure Vital Signs Vital Signs: Temp Pulse Resp BP Pulse Ox 03/12/21 20:29 96 H 119/63 03/12/21 20:05 96 H 18 116/52 L 03/12/21 19:54 115 H 130/59 L 03/12/21 19:48 18 03/12/21 19:37 129 H 98 03/12/21 19:34 122 H 18 131/60 03/12/21 19:32 122 H 97 03/12/21 19:31 120 H 136/62 03/12/21 19:27 118 H 97 03/12/21 19:22 167 H 98 03/12/21 19:17 125 H 96 03/12/21 19:16 121 H 140/71 03/12/21 19:12 131 H 98 03/12/21 19:10 129 H 94 03/12/21 19:07 118 H 97 03/12/21 19:03 116 H 126/65 03/12/21 19:02 113 H 97 03/12/21 19:00 37.6 C H 20 03/12/21 18:58 111 H 84 L 03/12/21 18:57 114 H 97 03/12/21 18:52 115 H 86 L 03/12/21 18:47 133 H 129/58 L 96 03/12/21 18:46 107 H 87 L 03/12/21 18:42 121 H 99 03/12/21 18:39 119 H 82 L 03/12/21 18:37 116 H 97 03/12/21 18:32 110 H 97 03/12/21 18:27 108 H 96 03/12/21 18:26 112 H 92 03/12/21 18:22 105 H 80 L 03/12/21 18:18 110 H 91 03/12/21 18:17 111 H 98 03/12/21 18:13 97 H 90 03/12/21 18:12 102 H 99 03/12/21 18:07 111 H 98 03/12/21 18:06 109 H 89 L 03/12/21 18:02 122 H 100 03/12/21 18:01 137 H 122/57 L 03/12/21 18:00 97 H 88 L 03/12/21 17:57 124 H 97 03/12/21 17:54 90 88 L 03/12/21 17:52 130 H 100 03/12/21 17:48 90 89 L 03/12/21 17:47 98 H 100 03/12/21 17:46 106 H 122/61 03/12/21 17:43 119 H 90 03/12/21 17:42 105 H 100 03/12/21 17:37 115 H 100 03/12/21 17:32 117 H 100 03/12/21 17:31 120 H 111/62 03/12/21 17:28 112 H 80 L 03/12/21 17:27 116 H 100 03/12/21 17:22 37.5 C 133 H 20 97 03/12/21 17:17 133 H 98 03/12/21 17:16 113 H 85 L 03/12/21 17:15 127 H 105/66 03/12/21 17:12 106 H 99 03/12/21 17:11 127 H 133/93 03/12/21 17:10 101 H 91 03/12/21 17:07 97 H 97 03/12/21 17:06 101 H 123/77 03/12/21 17:02 93 H 97 03/12/21 17:00 108 H 20 127/67 03/12/21 16:57 95 H 96 03/12/21 16:55 102 H 116/63 03/12/21 16:52 108 H 97 03/12/21 16:51 103 H 121/70 03/12/21 16:47 99 H 97 03/12/21 16:45 108 H 130/70 03/12/21 16:42 108 H 97 03/12/21 16:40 107 H 122/66 03/12/21 16:37 102 H 97 03/12/21 16:35 110 H 118/67 03/12/21 16:33 37.1 C 18 03/12/21 16:32 114 H 96 03/12/21 16:31 106 H 121/66 03/12/21 16:27 94 H 97 03/12/21 16:25 111 H 117/63 03/12/21 16:22 97 H 97 03/12/21 16:21 110 H 120/70 03/12/21 16:17 101 H 97 03/12/21 16:15 113 H 120/61 03/12/21 16:12 95 H 97 03/12/21 16:10 111 H 116/62 03/12/21 16:07 100 H 97 03/12/21 16:05 105 H 120/61 03/12/21 16:02 110 H 97 03/12/21 16:00 117 H 120/60 03/12/21 15:57 129 H 97 03/12/21 15:56 114 H 138/59 L 03/12/21 15:52 117 H 98 03/12/21 15:50 115 H 99/54 L 03/12/21 15:47 115 H 97 03/12/21 15:45 96 H 112/56 L 03/12/21 15:42 98 H 96 03/12/21 15:39 113 H 109/57 L 03/12/21 15:37 109 H 110/55 L 98 03/12/21 15:35 105 H 108/57 L 03/12/21 15:33 117 H 100/53 L 03/12/21 15:32 111 H 97 03/12/21 15:31 111 H 104/58 L 03/12/21 15:29 113 H 134/67 03/12/21 15:27 119 H 128/64 97 03/12/21 15:25 118 H 134/73 03/12/21 15:23 117 H 137/70 03/12/21 15:22 121 H 96 03/12/21 15:21 113 H 135/69 92 03/12/21 15:20 120 H 145/79 H 03/12/21 15:17 124 H 141/78 H 97 03/12/21 15:12 123 H 99 03/12/21 15:07 128 H 97 03/12/21 15:04 139 H 127/94 03/12/21 15:02 130 H 97 03/12/21 14:57 140 H 97 03/12/21 14:52 154 H 99 03/12/21 14:50 142 H 92 03/12/21 14:47 146 H 97 03/12/21 14:42 126 H 97 03/12/21 14:37 37.2 C 137 H 24 95 03/12/21 14:36 122 H 110/58 L 03/12/21 14:32 134 H 98 03/12/21 14:27 135 H 99 03/12/21 14:22 122 H 98 03/12/21 14:21 128 H 88 L 03/12/21 14:17 129 H 98 03/12/21 14:15 138 H 86 L 03/12/21 14:12 126 H 99 03/12/21 14:08 126 H 93 03/12/21 14:07 128 H 97 03/12/21 14:04 130 H 114/71 03/12/21 14:03 37.8 C H 20 03/12/21 14:02 130 H 98 03/12/21 14:01 125 H 89 L 03/12/21 13:57 118 H 98 03/12/21 13:56 134 H 92 03/12/21 13:52 134 H 100 03/12/21 13:49 133 H 112/67 03/12/21 13:47 127 H 97 03/12/21 13:44 129 H 82 L 03/12/21 13:42 126 H 97 03/12/21 13:37 133 H 88 L 03/12/21 13:36 134 H 113/62 03/12/21 13:32 130 H 91 03/12/21 13:28 123 H 82 L 03/12/21 13:27 132 H 99 03/12/21 13:22 133 H 100 03/12/21 13:19 134 H 137/68 03/12/21 13:17 127 H 98 03/12/21 13:12 127 H 99 03/12/21 13:07 113 H 99 03/12/21 13:05 115 H 131/78 03/12/21 13:02 115 H 98 03/12/21 12:57 112 H 99 03/12/21 12:52 111 H 98 03/12/21 12:49 112 H 131/76 03/12/21 12:47 121 H 99 03/12/21 12:42 113 H 99 03/12/21 12:37 120 H 99 03/12/21 12:35 122 H 92 03/12/21 12:32 128 H 100 03/12/21 12:27 123 H 98 03/12/21 12:22 115 H 98 03/12/21 12:21 112 H 130/76 03/12/21 12:17 114 H 98 03/12/21 12:12 120 H 97 03/12/21 12:07 115 H 100 03/12/21 12:06 108 H 20 119/91 03/12/21 12:02 109 H 98 03/12/21 11:57 102 H 99 03/12/21 11:52 120 H 99 03/12/21 11:49 116 H 132/81 03/12/21 11:47 112 H 100 03/12/21 11:42 113 H 99 03/12/21 11:37 118 H 98 03/12/21 11:34 112 H 133/77 03/12/21 11:32 113 H 99 03/12/21 11:27 112 H 99 03/12/21 11:22 110 H 98 03/12/21 11:20 109 H 131/80 03/12/21 11:17 107 H 100 03/12/21 11:12 103 H 99 03/12/21 11:07 111 H 99 03/12/21 11:05 36.9 C 111 H 20 128/77 03/12/21 11:02 110 H 99 03/12/21 10:57 113 H 99 03/12/21 10:52 99 H 98 03/12/21 10:49 105 H 122/75 03/12/21 10:47 101 H 98 03/12/21 10:42 102 H 97 03/12/21 10:37 106 H 97 03/12/21 10:34 102 H 120/76 03/12/21 10:32 99 H 99 03/12/21 10:27 111 H 99 03/12/21 10:22 108 H 99 03/12/21 10:20 104 H 121/75 03/12/21 10:17 115 H 97 03/12/21 10:12 101 H 99 03/12/21 10:07 110 H 98 03/12/21 10:04 110 H 18 123/67 03/12/21 10:02 113 H 97 03/12/21 09:57 118 H 98 03/12/21 09:52 119 H 92 03/12/21 09:49 108 H 110/77 03/12/21 09:47 102 H 98 03/12/21 09:42 113 H 98 03/12/21 09:37 104 H 99 03/12/21 09:35 117 H 106/68 03/12/21 09:32 107 H 98 03/12/21 09:27 105 H 96 03/12/21 09:22 98 H 95 03/12/21 09:19 111 H 115/67 03/12/21 09:17 100 H 95 03/12/21 09:12 106 H 96 03/12/21 09:07 105 H 96 03/12/21 09:04 110 H 116/67 03/12/21 09:02 105 H 96 03/12/21 09:01 36.9 C 18 03/12/21 08:57 106 H 96 03/12/21 08:52 109 H 96 03/12/21 08:49 110 H 122/68 03/12/21 08:47 81 96 03/12/21 08:42 99 H 96 03/12/21 08:37 112 H 96 03/12/21 08:33 116 H 116/67 03/12/21 08:32 116 H 98 03/12/21 08:31 111 H 119/67 03/12/21 08:30 116 H 117/66 03/12/21 08:28 105 H 106/61 03/12/21 08:27 112 H 98 03/12/21 08:26 110/58 L 03/12/21 08:23 86 113/62 03/12/21 08:22 104 H 97 03/12/21 08:21 107 H 113/63 03/12/21 08:19 109 H 107/60 03/12/21 08:17 116 H 113/56 L 98 03/12/21 08:16 121 H 102/54 L 03/12/21 08:13 108 H 117/63 03/12/21 08:12 113 H 98 03/12/21 08:11 113 H 115/63 03/12/21 08:09 106 H 117/56 L 03/12/21 08:07 106 H 116/58 L 97 03/12/21 08:05 105 H 123/66 03/12/21 08:04 110 H 115/61 03/12/21 08:02 109 H 98 03/12/21 07:57 106 H 97 03/12/21 07:52 85 98 03/12/21 07:47 103 H 99 03/12/21 07:42 104 H 99 03/12/21 07:37 108 H 98 03/12/21 07:05 36.6 C 91 H 20 120/80 03/12/21 04:45 36.6 C 100 H 18 122/75 03/12/21 03:30 36.8 C 03/12/21 01:31 104 H 121/76 03/12/21 01:26 36.8 C 18 Pain Intensity Bilateral Episiotomy/Laceration: Pain Intensity: 6 Transfer of Care Handoff Completed per policy Notes Mental Status: alert / awake / arousable and participated in evaluation Patient Amnestic to Procedure: Yes Nausea / Vomiting: adequately controlled Pain: adequately controlled Airway Patency, RR, SpO2: stable & adequate BP & HR: stable & adequate Hydration State: stable & adequate Anesthetic Complications: no major complications apparent and Pt Satisfied with anesthetic care
[2021-03-12] MEDS: OXYTOCIN 20 UNITS in LACTATED RINGER'S 1,000 ML IV SCH (20:58)
[2021-03-12] MEDS: DOCUSATE SODIUM 100 MG CAP PO SCH (21:01)
[2021-03-13] MEDS: OXYTOCIN 20 UNITS in LACTATED RINGER'S 1,000 ML IV SCH (06:04)
[2021-03-13] MEDS: ceFAZolin 2000MG 2,000 MG/15 ML SYR IV SCH ×2 (06:22→14:43)
[2021-03-13 07:27] LABS: Hemoglobin 11.5 g/dL (12.0-16.0); Mean Corpuscular Hemoglobin 27.6 pg (25-34); Mean Corpuscular Hgb Conc 32.9 g/dL (32-36); Mean Corpuscular Volume 83.9 fL (80-100); Platelet Count 177 K/uL (130-400); RDW Coefficient of Variation 13.7 % (11.5-14.5); RDW Standard Deviation 40.9 fL (36.4-46.3); Red Blood Count 4.17 M/uL (4.2-5.4); White Blood Count 21.28 K/uL (4.8-10.8)
[2021-03-13] MEDS: PRENATAL VITAMIN 1 TAB PO SCH (08:30)
[2021-03-13] MEDS: DOCUSATE SODIUM 100 MG CAP PO SCH ×2 (08:30→20:16)
[2021-03-13] MEDS: FERROUS SULFATE 325 MG TAB PO SCH (08:31)
--- NOTE | 2021-03-13 10:19 | Obstetrical Progress Note ---
Date of Service March 13, 2021 Assessment & Plan Admission and Anticipated Discharge Date Admission Date: March 12, 2021 Subjective Patient is seen and examined. She feels well, no complaints. Ambulating without dizziness Voiding without difficulty Tolerating regular diet with out N&V Bleeding is minimal No fever/ chills/ CP/ SOB/ N&V/ Leg pain Breast and bottle feeding without problems Vital Signs Temp Pulse Resp BP Pulse Ox 03/13/21 08:15 36.6 C 97 H 18 112/74 97 03/13/21 02:40 36.8 C 85 18 132/83 03/12/21 22:55 37.4 C 98 H 16 125/74 Lab Results 03/12/21 03/12/21 03/12/21 Range/Units 02:15 02:15 02:20 WBC (4.8-10.8) K/uL RBC (4.2-5.4) M/uL Hgb (12.0-16.0) g/dL Hct (37-47) % MCV (80-100) fL MCH (25-34) pg MCHC (32-36) g/dL RDW Std Deviation (36.4-46.3) fL RDW Coeff of Huber (11.5-14.5) % Plt Count (130-400) K/uL MPV (7.4-10.4) fL COVID-19 Eval Order Covid19 [facility]Now [facility] SARS-CoV-2, RNA, NAAT NEGATIVE (NEGATIVE) Blood Type O Positive Antibody Screen NEGATIVE 03/12/21 03/13/21 Range/Units 02:20 07:00 WBC 10.49 21.28 H (4.8-10.8) K/uL RBC 4.56 4.17 L (4.2-5.4) M/uL Hgb 12.6 11.5 L (12.0-16.0) g/dL Hct 38.0 35.0 L (37-47) % MCV 83.3 83.9 (80-100) fL MCH 27.6 27.6 (25-34) pg MCHC 33.2 32.9 (32-36) g/dL RDW Std Deviation 40.4 40.9 (36.4-46.3) fL RDW Coeff of Huber 13.5 13.7 (11.5-14.5) % Plt Count 230 177 (130-400) K/uL MPV 11.3 H 11.0 H (7.4-10.4) fL COVID-19 Eval Order SARS-CoV-2, RNA, NAAT (NEGATIVE) Blood Type Antibody Screen PE: General: Alert, orientedx3, NAD Abd: soft, NT, fundus firm, below Umbilicus Perineum intact, Lochia rubra minimal Ext; NT, no edema AP: 25 yo s/p , ppd# 1 VSS Afebrile doing well Continue routine care All questions were answered D/C home tomorrow Results & Data ([facility]) Vital Signs (Past 12 Hours) Vital Signs Temp Pulse Resp BP Pulse Ox 03/13/21 08:15 36.6 C 97 H 18 112/74 97 03/13/21 02:40 36.8 C 85 18 132/83 03/12/21 22:55 37.4 C 98 H 16 125/74
[2021-03-13] MEDS: IBUPROFEN 600 MG TAB PO PRN (18:06)
[2021-03-13] MEDS ORDERED: bisacodyL 5 MG TABEC PO SCH (20:00)
[2021-03-13] MEDS: AMOXICILLIN/CLAVULANATE 875 MG TAB PO SCH (20:15)
[2021-03-14 05:44] LABS: Basophils # (auto) 0.03 K/uL (0-0.2); Basophils % (auto) 0.2 %; Eosinophils # (auto) 0.39 K/uL (0-0.5); Eosinophils % (auto) 2.8 %; Hematocrit (blood only) 36.1 % (37-47); Hemoglobin 11.8 g/dL (12.0-16.0); Immature Granulocytes # (auto) 0.08 K/uL (0.00-0.02); Immature Granulocytes % (auto) 0.6 %; Lymphocytes # (auto) 3.57 K/uL (1.2-3.4); Lymphocytes % (auto) 25.6 %; Mean Corpuscular Hemoglobin 27.7 pg (25-34); Mean Corpuscular Hgb Conc 32.7 g/dL (32-36); Mean Corpuscular Volume 84.7 fL (80-100); Mean Platelet Volume 11.2 fL (7.4-10.4); Monocytes # (auto) 0.98 K/uL (0.11-0.59); Neutrophils # (auto) 8.87 K/uL (1.4-6.5); Neutrophils % (auto) 63.8 %; Platelet Count 192 K/uL (130-400); RDW Standard Deviation 42.7 fL (36.4-46.3); Red Blood Count 4.26 M/uL (4.2-5.4); White Blood Count 13.92 K/uL (4.8-10.8)
[2021-03-14] MEDS: FERROUS SULFATE 325 MG TAB PO SCH (07:52)
[2021-03-14] MEDS: DOCUSATE SODIUM 100 MG CAP PO SCH (07:52)
[2021-03-14] MEDS: PRENATAL VITAMIN 1 TAB PO SCH (07:52)
[2021-03-14] MEDS: AMOXICILLIN/CLAVULANATE 875 MG TAB PO SCH (07:52)
--- NOTE | 2021-03-14 09:38 | Obstetrical Progress Note ---
Date of Service March 14, 2021 Subjective Ambulation: ambulating normally Voiding: no voiding problems Passing Gas:: Yes Diet Tolerance:: regular diet Feeding Type:: breast feeding Current Pain Level(1-10): 0 doing well Physical Exam Constitutional WD/WN, vitals as above abdomen soft and non-tender no edema neg Anne's for d/c home Results & Data ([facility]) Vital Signs (Past 12 Hours) Vital Signs Temp Pulse Resp BP Pulse Ox 03/14/21 07:40 36.5 C 82 16 120/81 100 03/14/21 05:35 36.7 C 84 16 125/82 03/14/21 01:00 36.6 C 83 16 117/74 Laboratory Results Laboratory Results - last 72 hr 03/12/21 03/12/21 03/12/21 02:15 02:15 02:20 WBC RBC Hgb Hct MCV MCH MCHC RDW Std Deviation RDW Coeff of Huber Plt Count MPV Immature Gran % (Auto) Neut % (Auto) Lymph % (Auto) [place] % (Auto) Eos % (Auto) Baso % (Auto) Neut # (Auto) Lymph # (Auto) [place] # (Auto) Eos # (Auto) Baso # (Auto) Immature Gran # (Auto) COVID-19 Eval Order Covid19 IDNow [facility] SARS-CoV-2, RNA, NAAT NEGATIVE Blood Type O Positive Antibody Screen NEGATIVE 03/12/21 03/13/21 03/14/21 02:20 07:00 05:25 WBC 10.49 21.28 H 13.92 H RBC 4.56 4.17 L 4.26 Hgb 12.6 11.5 L 11.8 L Hct 38.0 35.0 L 36.1 L MCV 83.3 83.9 84.7 MCH 27.6 27.6 27.7 MCHC 33.2 32.9 32.7 RDW Std Deviation 40.4 40.9 42.7 RDW Coeff of Huber 13.5 13.7 14.0 Plt Count 230 177 192 MPV 11.3 H 11.0 H 11.2 H Immature Gran % (Auto) 0.6 Neut % (Auto) 63.8 Lymph % (Auto) 25.6 [place] % (Auto) 7.0 Eos % (Auto) 2.8 Baso % (Auto) 0.2 Neut # (Auto) 8.87 H Lymph # (Auto) 3.57 H [place] # (Auto) 0.98 H Eos # (Auto) 0.39 Baso # (Auto) 0.03 Immature Gran # (Auto) 0.08 H COVID-19 Eval Order SARS-CoV-2, RNA, NAAT Blood Type Antibody Screen
== END 2021-03-14 12:30 | disposition home or self-care (01) | DRG 807 ==
LOC: OPB 01:15 → 4S1 01:17 → 4S2 22:00